=== PATIENT | female | born 1965 | race Caucasian/White ===

== ENCOUNTER → 2024-10-25 | Day surgery (SDC) | payer OTHER ==
[2024-10-18 14:45] LABS: ANION GAP 15.4 mmol/L (8-16); CALCIUM 9.5 mg/dL (8.4-10.2); CREATININE, SERUM 1.33 mg/dL (0.57-1.11); POTASSIUM 4.4 mmol/L (3.5-5.1)
[~2024-10-25] MED LIST: ACETAMINOPHEN 1000 MG/100 ML 100 ML IV ONE; ACETAMINOPHEN-1 EAC4 PO; BISOPROLOL-HCT1 EAC2 PO; DEXAMETHASONE SOD PHOS INJ 4 MG/ML SDV ONE; EPHEDRINE SULFATE INJ 50 MG/ML VIAL ONE; EYE LUBRICANT OPTH OINT 3.5GM TUBE OP ONE; FAMOTIDINE 20 MG/2 ML VIAL IV ONE; FAMOTIDINE20 MG PO; FENTANYL CITRATE/PF 100MCG/2 ML INJ ONE; LACTATED RINGER'S 1,000 ML ONE; LIDOCAINE HCL 2% LOCAL INJ 5 ML SDV VIAL INJ ONE; MIDAZOLAM HCL 2 MG/2 ML VIAL ONE; ONDANSETRON HCL 4 MG ORAL DISINTEGRATING TAB ONE; ONDANSETRON HCL INJ 2MG/ML 2ML 2 MG/ML VIAL ONE; PROPOFOL IV EMULSION 10 MG/ML 20 ML VIAL ONE; ROCURONIUM BROMIDE 1 ML IV ONE; SEVOFLURANE INHAL SOLN 250 ML PEN BTL ONE; SUGAMMADEX SODIUM 200 MG/2 ML VIAL IV ONE
[2024-10-25] MEDS: FENTANYL CITRATE/PF 100MCG/2 ML INJ ONE (09:35)
[2024-10-25 10:27] VITALS: BP 122/74; PULSE 71; RESP 18; O2SAT 97
== END | disposition home or self-care (01) ==
LOC: OR 06:03
PROVIDERS: ATTEND Plastic Surgery
DX: D17.1 Benign lipomatous neoplasm of skin and subcutaneous tissue of trunk (principal); L91.8 Other hypertrophic disorders of the skin; I10 Essential (primary) hypertension; Z01.810 Encounter for preprocedural cardiovascular examination; Z01.812 Encounter for preprocedural laboratory examination; Z79.899 Other long term (current) drug therapy
CPT/HCPCS: 11200; 21933; 36415; 80048; 88304; 93005; J0131; J0690; J1100; J2003; J2250; J2405; J2704; J3010; J7121; Q0162